=== PATIENT | male | born 1990 | race Caucasian/White ===

== ENCOUNTER 2019-08-25 01:34 | Emergency (ER) | payer BC, MEDICARE ==
[~2019-08-25] VITALS: Ht 185.4 cm; Wt 77.1 kg
[2019-08-25 01:40] VITALS: BP_SYST 124
--- NOTE | 2019-08-25 01:40 | NUR ---
Patient to ER [facility] to gown for evaluation. Side rails up.
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
--- NOTE | 2019-08-25 03:20 | NUR ---
ER Dr. Pandya at bedside examining patient.
[2019-08-25 05:24] VITALS: BP_SYST 115
--- NOTE | 2019-08-25 05:24 | NUR ---
Patient given written and verbal discharge instructions and verbalizes understanding. ER MD discussed with patient the results and treatment provided. Patient in stable condition. ID arm band removed. No Rx given. Patient educated on pain management and to follow up with PMD. Pain Scale 0. Opportunity for questions provided and answered. Medication side effect fact sheet provided. Accompanied by SHELBY.
== END 2019-08-25 05:24 ==
LOC: SED 01:34
DX: S09.90XA Unspecified injury of head, initial encounter (principal); Y00.XXXA Assault by blunt object, initial encounter; Y93.89 Activity, other specified; Y92.89 Other specified places as the place of occurrence of the external cause; Y99.8 Other external cause status
CPT/HCPCS: 70450-TC; 99284